=== PATIENT | female | born 1985 | race Caucasian/White ===

== ENCOUNTER → 2018-01-30 | Outpatient (REF) ==
[2018-01-30 18:35] LABS: THYROID STIMULATING HORMONE 1.29 uIU/mL (0.465-4.680)
[2018-01-30 23:17] LABS: ALBUMIN 3.9 gm/dL (3.5-5.0); BILIRUBIN,TOTAL 0.4 mg/dL (0.0-1.0); CALCIUM 9.7 mg/dL (8.4-10.2); CHOLESTEROL RISK RATIO 2.5; CREATININE, serum 0.83 mg/dL (0.52-1.25); POTASSIUM 4.6 mmol/L (3.4-5.0); TOTAL PROTEIN 7.2 gm/dL (6.4-8.2)
== END ==
LOC: ZLAB.WCH 17:52
PROVIDERS: Family Medicine
DX: Z01.89 Encounter for other specified special examinations (principal)